=== PATIENT | male | born 1995 | race Caucasian/White ===

== ENCOUNTER 2025-05-06 18:41 | Emergency (ER) | payer OTHER, SELFPAY ==
--- OUTSIDE RECORDS SUMMARY | 2025-05-06 18:43 | XMS_ITS | Clinical Summary ---
Author Organization 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 Name Role Phone None, Provider MD Primary Care Provider Unavaila ble Allergies No known active allergies Medications No known medications Social History Tobacco Use Types Packs/Day Years Used Date Smoking Tobacco: Never Smokeless Tobacco: Never Alcohol Use Standard Drinks/Week Comments Yes 0 (1 standard drink = 0.6 oz pur e alcohol) Sex and Gender Information Value Date Recorded Sex Assigned at Not on file Legal Sex Male 6:59 PM CDT Gender Identity Not on file Sexual Orientation Not on file Last Filed Vital Signs Vital Sign Reading Time Taken Comments Blood Pressure 150/90 12/11/2021 11:26 AM CDT Pulse 87 12/11/2021 11:26 AM CDT Temperature 37.1 C (98.7 F) 12/11/2021 11:27 AM CDT Respiratory Rate 16 12/11/2021 11:20 AM CDT Oxygen Saturation 98% 12/11/2021 11:26 AM CDT Inhaled Oxygen Concentration - - Weight 107 kg (235 lb 12.8 oz) 12/11/2021 11:20 AM CDT Height 172.7 cm (5' 8) 12/11/2021 11:20 AM CDT Body Mass Index 35.85 12/11/2021 11:20 AM CDT Plan of Treatment Health Maintenance Due Date Last Done Comments Annual Physical 02/25/1999 Hepatitis C 02/25/2014 DTaP, Tdap and Td Vaccines ( 2 - Tdap) 02/25/2015 05/08/2001 Hepatitis B Vaccines (1 of 3 - 19+ 3-dose series) 02/25/2015 HPV Vaccines (1 - 3-dose SCD M series) 02/25/2023 COVID-19 Vaccine (2023-2 5 season) 2024 01/20/2021, 12/26/2020 Meningococcal B Vaccine Aged Out No l onger eligible based on patient's age to complete this topic Meningococcal Vaccine Aged Out No chan sathya eligible based on patient's age to complete this topic Pneumococcal Vaccine: Pediatrics (0 to 5 Years) and At-Risk Patients (6 to 49 Years) Aged Out No longer eligible b ased on patient's age to complete this topic RSV Immunizations Under 20 Months Aged Out No longer eligible b ased on patient's age to complete this [place] [address] [facility] En[employer] [facility] Care Teams Supervisor Plastering Relationship Specialty Start Date End Date None, Provider, PCP - General 12/11/21
--- NOTE | 2025-05-06 18:51 | ECG_ITS ---
Test Date: 2025-05-06 18:57:49 Measurements Intervals [place] Rate: 61 P: 14 ID: 158 QRS: 13 QRSD: 117 T: 42 QT: 423 QTc: 426 Interpretive Statements SINUS RHYTHM INTRAVENTRICULAR CONDUCTION DELAY EARLY PRECORDIAL R/S TRANSITION BASELINE ARTIFACT- I, II, AVR, AVL, V3 BORDERLINE ECG No previous ECG available for comparison Electronically Signed On 05-06-2025 18:58:22 CDT by Raffy Bravo D.O.
--- NOTE | 2025-05-06 18:51 | ED_ITS ---
HPI - Chest Pain General Chief Complaint: Chest Pain Stated Complaint: chest pain/ feels off Time Seen by Provider: 05/06/25 18:51 Source: patient Mode of arrival: ambulatory Limitations: no limitations History of Present Illness HPI narrative: 30 y/o male presented for c/o left arm tingling intermittently today, with nausea and decreased appetite. Endorses brief episode of sharp left chest pain for about 30 seconds yesterday. Denies sob, palpitations, dizziness, vomiting, or lethargy. States he thinks he developed anxiety as a result of the chest pain. Denies drug use, heavy lifting or injury. Has not taken anything for symptoms. No pcp. smokes marijuana and uses nicotine patches. Related Data Home Medications ?Medication ?Instructions ?Recorded ?Confirmed ?Last Taken ?Type No Home Medications 05/06/25 05/06/25 Unknown History Allergies Allergy/AdvReac Type Severity Reaction Status Date / Time No Known Allergies Allergy Unverified 12/20/21 09:16 Review of Systems Review of Systems: CONSTITUTIONAL: Denies body aches, fever, chills, or sweats. EYES: Denies visual changes, redness, or discharge. ENT: Denies rhinorrhea, congestion, sore throat, or otalgia. CARDIOVASCULAR: Denies chest pain, palpitations, or edema. RESPIRATORY: Denies cough or dyspnea. GASTROINTESTINAL: reports nausea decreased appetite Denies abdominal pain, vomiting, or diarrhea. GENITOURINARY: Denies dysuria or hematuria. SKIN: Denies rash MUSCULOSKELETAL: Denies back pain, joint pain, or myalgia. NEUROLOGIC: Denies headache, numbness, or weakness. reports left arm tingling, PSYCH: reports anxiety. All systems reviewed & are unremarkable except as noted in HPI and below PMFSH Surgical History Surgical History [place] teeth extracted Family History Family History Sibling Hypertension Father Family history of hypercholesterolemia Hypertension Family history of gastrointestinal disorder Mother Family history of gastrointestinal disorder Social History Social History Smoking packs per day: 0.5 Smoking cigarettes per day: 10.0 Years smoked: 2 Smoking pack-years: 1.00 Smoking status: Current every day smoker Second hand tobacco smoke exposure: Yes Smoking end date: 09/22/16 Alcohol intake: current Comments At time of signature, I have reviewed and agree with nursing past medical, surgical, social and family history unless otherwise noted. Please see nursing chart for further information. There is no relevant family history pertinent to the presenting complaint Exam Narrative: GENERAL: Well-appearing, and in no acute distress. HEAD: Normocephalic, atraumatic. EYES: EOMI. No redness or drainage. Conjunctivae normal. ENT: Mucous membranes pink and moist. NECK: Normal AROM. No vertebral point tenderness. CHEST: No respiratory distress. Clear to auscultation. Nontender chest. HEART: Regular rate and rhythm. No murmur appreciated. Normal peripheral pulses. ABDOMEN: Soft, nontender, nondistended, normal active bowel sounds. MUSCULOSKELETAL: No bony tenderness. EXTREMITIES: Normal range of motion to BUEs. No edema. SKIN: Warm, dry, no rash. Capillary refill normal. Normal skin turgor. NEURO: No focal deficits. Alert and oriented x3. Gait steady. PSYCH: Normal affect. No signs of depression or anxiety. Course Course Emergency Course: Patient is aware of diagnosis, understands and agrees to treatment plan. Anticipatory guidance given. Patient agrees to follow-up as directed and is a diaz of reasons to seek care at the emergency department. Portions of this record may have been created with voice recognition software Level of Care: Express Care Visit Vital Signs Vital signs: Vital Signs Temperature 97.7 F 05/06/25 18:59 Pulse Rate 72 05/06/25 18:59 Respiratory Rate 16 05/06/25 18:59 Blood Pressure 176/101 H 05/06/25 18:59 Pulse Oximetry 99 05/06/25 18:59 Oxygen Delivery Room Air 05/06/25 18:59 Temperature 97.7 F 05/06/25 18:59 Pulse Rate 72 05/06/25 18:59 Respiratory Rate 16 05/06/25 18:59 Blood Pressure 176/101 H 05/06/25 18:59 Pulse Oximetry 99 05/06/25 18:59 Oxygen Delivery Room Air 05/06/25 18:59 MDM - Chest Pain MDM Narrative Medical decision making narrative: Discussed physical exam findings an EKG. Discussed at length possible etiologies of symptoms and offered ER transfer. Patient has not had any pain today and declines ER at this time. He states he will continue to monitor symptoms closely go to the ER symptoms worsen Advised supportive measures and signs/symptoms to go to the ER. Pt is appropriate for outpt treatment and f/u. Blood sugar 97. Differential Diagnosis Differential diagnosis: Likely pneumothorax, stable angina, unstable angina pectoris, atypical chest pain, st elevation myocardial infarction, costochondritis, chest pain and biliary colic ECG Data EKG #1: Attestation: I personally reviewed and interpreted this ECG as follows: (NSR rate 61 ID 158, QRS 117, QT/QTC 423/425) ECG completion date: 05/06/25 ECG completion time: 18:57 EKG Interpretation: normal rate Discharge Plan Discharge Clinical Impression: Chest pain Patient Disposition: Home Condition: Stable Instructions: Antibiotic Form, Chest Pain (ED) Additional Instructions: Your EKG looked normal today Your blood pressure reading was elevated (above 120/80). please follow-up with your primary care provider for further evaluation and management. If you develop worsening Blood Pressure symptoms, (headache, vision changes, dizziness, vomiting, chest pain, etc) go to the ER. Call 911. Avoid caffeine, smoking, alcohol/drugs Avoid exertion. Stay hydrated. Tylenol or ibuprofen as needed for pain. Patient Language: Pashto Prescriptions: No Action No Home Medications Follow-up/Referrals: PHYSICIAN,QA [employer] ARCHITECT [Primary Care Provider] - Time of Disposition: 19:16
[2025-05-06 18:59] VITALS: BP 176/101; PULSE 72; RESP 16; TEMP 36.5; O2SAT 99
[2025-05-06 19:16] VITALS: BP 140/97
== END 2025-05-06 19:19 | disposition home or self-care (01) ==
PROVIDERS: Emergency Provider Nurse Practitioner Family; Referring Provider Family Medicine
DX: R07.9 Chest pain, unspecified (principal); Z87.891 Personal history of nicotine dependence
CPT/HCPCS: 82948; 93005; 99203; G0463